=== PATIENT | female | born 1950 | race Caucasian/White ===

== ENCOUNTER 2016-05-24 09:00 | Outpatient (RCR) | payer MEDICARE ==
[2016-05-01 22:02] VITALS: BP 106/59
[~2016-05-24 09:00] MED LIST: CYMBALTA30 MG PO; GABAPENTIN TAB600 MG PO; LAMICTAL 25MG T25 MG; LEVOTHYROXIN0.025 MG PO; METHADONE HYDRO10 MG PO; METHADONE5 MG; NORCO 325 MG-101 TAB PO
== END 2016-06-22 13:23 | disposition home or self-care (01) ==
LOC: OPPGERO 09:00

== ENCOUNTER 2016-09-01 09:45 | Emergency (ER) | payer OTHER ==
[2016-09-01] MEDS ORDERED: BUTRANS10 MCG/HR TOP (10:11)
[2016-09-01] MEDS ORDERED: PENICILLIN-VK500 M1 PO (10:12)
[2016-09-01] MEDS ORDERED: NEURONTIN300 MG/CAP (10:18)
[2016-09-01] MEDS ORDERED: LAMICTAL150 MG PO (10:19)
[2016-09-01] MEDS ORDERED: LEVOTHYROXIN0.088 MG PO (10:20)
[2016-09-01] MEDS ORDERED: ZOLPIDEM TART5 MG PO (10:21)
[2016-09-01] MEDS ORDERED: DESYREL 100MG100 MG PO (10:21)
[2016-09-01] MEDS ORDERED: PREDNISONE10 MG PO (12:38)
[2016-09-01] MEDS ORDERED: IBU800 M1 PO (12:38)
[2016-09-01] MEDS ORDERED: CLEOCIN HCL300 MG PO (12:38)
[2016-09-01 12:44] VITALS: BP 90/55
== END 2016-09-01 12:53 | disposition home or self-care (01) ==
LOC: ED 09:45
DX: R68.84 Jaw pain (principal); R60.9 Edema, unspecified; Z98.818 Other dental procedure status
CPT/HCPCS: Q9967

== ENCOUNTER 2017-02-11 10:00 | Outpatient (RCR) | payer OTHER ==
[~2017-02-11 10:00] MED LIST changes: +BUTRANS10 MCG/HR TOP; +CLEOCIN HCL300 MG PO; +DESYREL 100MG100 MG PO; +IBU800 M1 PO; +LAMICTAL150 MG PO; +LEVOTHYROXIN0.088 MG PO; +NEURONTIN300 MG/CAP; +PENICILLIN-VK500 M1 PO; +PREDNISONE10 MG PO; +ZOLPIDEM TART5 MG PO
== END 2017-02-11 10:43 | disposition home or self-care (01) ==
LOC: PT 10:00
DX: M48.06 Spinal stenosis, lumbar region (principal); M51.27 Other intervertebral disc displacement, lumbosacral region

== ENCOUNTER → 2017-10-10 | Day surgery (SDC) | payer MEDICARE | LOC: MSO 07:16 | DX: Z12.11 Encounter for screening for malignant neoplasm of colon (principal); G47.33 Obstructive sleep apnea (adult) (pediatric); E07.9 Disorder of thyroid, unspecified; G62.9 Polyneuropathy, unspecified; F41.9 Anxiety disorder, unspecified; F32.9 Major depressive disorder, single episode, unspecified | CPT/HCPCS: 00812; J2704; J7120 ==

== ENCOUNTER → 2018-10-11 | Outpatient (CLI) | payer MEDICARE | LOC: RAD 08:30 | DX: M19.012 Primary osteoarthritis, left shoulder (principal); M75.52 Bursitis of left shoulder ==

== ENCOUNTER → 2019-02-06 | Outpatient (CLI) | payer MEDICARE | LOC: MAMMO 10:38 | DX: Z12.31 Encounter for screening mammogram for malignant neoplasm of breast (principal) ==

== ENCOUNTER 2019-03-16 17:26 | Emergency (ER) | payer MEDICARE ==
[~2019-03-16] VITALS: Ht 152.4 cm; Wt 73.2 kg
[2019-03-16] MEDS ORDERED: PILOCARPINE HYDR5 MG PO (17:38)
[2019-03-16] MEDS ORDERED: METHOCARBAMOL500 M1 PO (17:38)
[2019-03-16 19:32] VITALS: BP 110/56
== END 2019-03-16 19:32 | disposition home or self-care (01) ==
LOC: ED 17:26
DX: S80.02XA Contusion of left knee, initial encounter (principal); M79.7 Fibromyalgia; Z90.710 Acquired absence of both cervix and uterus; Z90.5 Acquired absence of kidney; W01.0XXA Fall on same level from slipping, tripping and stumbling without subsequent striking against object, initial encounter; Y92.009 Unspecified place in unspecified non-institutional (private) residence as the place of occurrence of the external cause
CPT/HCPCS: J1885; L1830

== ENCOUNTER 2019-08-05 19:28 | Emergency (ER) | payer MEDICARE ==
[~2019-08-05 19:28] MED LIST changes: +METHOCARBAMOL500 M1 PO; +PILOCARPINE HYDR5 MG PO
[2019-08-05 21:00] VITALS: BP 114/68
== END 2019-08-05 21:00 | disposition home or self-care (01) ==
LOC: ED 19:28
DX: S80.11XA Contusion of right lower leg, initial encounter (principal); M79.7 Fibromyalgia; G62.9 Polyneuropathy, unspecified; Z90.5 Acquired absence of kidney; Z90.710 Acquired absence of both cervix and uterus; W22.8XXA Striking against or struck by other objects, initial encounter; Y92.009 Unspecified place in unspecified non-institutional (private) residence as the place of occurrence of the external cause
CPT/HCPCS: J1885

== ENCOUNTER → 2020-06-10 | Outpatient (CLI) | payer MEDICARE | LOC: RAD 09:12 | DX: M17.11 Unilateral primary osteoarthritis, right knee (principal); M25.761 Osteophyte, right knee; M25.861 Other specified joint disorders, right knee ==

== ENCOUNTER 2020-06-21 22:59 | Emergency (ER) | payer MEDICARE ==
[~2020-06-21] VITALS: Ht 170.2 cm; Wt 75.0 kg
[2020-06-21] MEDS ORDERED: AMITRIPTYLINE H10 M2 PO (23:15)
[2020-06-21] MEDS ORDERED: AMITRIPTYLINE H25 M2 PO (23:15)
[2020-06-21] MEDS ORDERED: NEURONTIN600 M1 PO (23:16)
[2020-06-21] MEDS ORDERED: CYMBALTA60 M1 PO (23:17)
[2020-06-21] MEDS ORDERED: SALAGEN 5MG TAB5 MG PO (23:17)
[2020-06-21] MEDS ORDERED: SYNTHROID0.075 MG PO (23:17)
[2020-06-21] MEDS ORDERED: ZOCOR10 M1 PO (23:18)
[2020-06-22 00:52] LABS: EOS # 0.2 (0.04-0.40); EOS % 3.3 % (1.0-5.0); HEMATOCRIT 41.8 % (37.0-47.0); HEMOGLOBIN 13.2 g/dL (12.5-16.0); LYMPH# 1.3 (1.50-4.00); MEAN CELL VOLUME 94 fl (78-100); MEAN CORPUSCULAR HEMOGLOBIN 30 pg (27-31); MEAN CORPUSCULAR HGB CONC 32 g/dL (33-37); MEAN PLATELET VOLUME 11.2 fl (7.4-10.4); MONO # 0.6 (0.20-0.80); NEU # 3.6 (1.40-6.50); PLATELET COUNT 182 K/mm3 (130-400); RED BLOOD COUNT 4.44 M/mm3 (4.10-5.30); RED CELL DISTRIBUTION WIDTH 12.7 % (11.5-14.5); WHITE BLOOD COUNT 5.7 K/mm3 (4.8-10.8)
[2020-06-22] MEDS ORDERED: GOOD NEIGHBOR P20 M1 PO (01:30)
[2020-06-22 01:36] VITALS: BP 114/64
== END 2020-06-22 01:36 | disposition home or self-care (01) ==
LOC: ED 22:59
PROVIDERS: Family Medicine
DX: R05 Cough (principal); R13.10 Dysphagia, unspecified; R49.0 Dysphonia; M79.7 Fibromyalgia; Z20.822 Contact with and (suspected) exposure to COVID-19; Z90.710 Acquired absence of both cervix and uterus; Z88.2 Allergy status to sulfonamides; Z79.890 Hormone replacement therapy; Z79.899 Other long term (current) drug therapy

== ENCOUNTER 2020-07-29 10:09 | Outpatient (RCR) | payer MEDICARE ==
[~2020-07-29 10:09] MED LIST changes: +AMITRIPTYLINE H10 M2 PO; +AMITRIPTYLINE H25 M2 PO; +CYMBALTA60 M1 PO; +GOOD NEIGHBOR P20 M1 PO; +NEURONTIN600 M1 PO; +SALAGEN 5MG TAB5 MG PO; +SYNTHROID0.075 MG PO; +ZOCOR10 M1 PO
== END 2020-07-29 16:30 ==
LOC: PT 10:09
DX: Z96.651 Presence of right artificial knee joint (principal)

== ENCOUNTER 2020-10-09 11:02 | Outpatient (RCR) | payer MEDICARE | END 2021-01-07 | disposition home or self-care (01) | LOC: PT | DX: R26.89 Other abnormalities of gait and mobility (principal); Z96.651 Presence of right artificial knee joint ==

== ENCOUNTER → 2021-02-18 | Outpatient (CLI) | payer MEDICARE | LOC: MAMMO 10:36 | DX: Z12.31 Encounter for screening mammogram for malignant neoplasm of breast (principal) ==

== ENCOUNTER 2021-11-01 08:32 | Emergency (ER) | payer MEDICARE ==
[~2021-11-01] VITALS: Ht 162.6 cm; Wt 79.1 kg
[2021-11-01] MEDS ORDERED: BUPRENORPHINE1 EAC2 TD (08:50)
[2021-11-01] MEDS ORDERED: FLUTICASON0.05 MG/AC NS (08:52)
[2021-11-01 09:16] VITALS: BP 112/64
== END 2021-11-01 09:16 | disposition home or self-care (01) ==
LOC: ED 08:32
DX: M54.50 Low back pain, unspecified (principal); G89.29 Other chronic pain
CPT/HCPCS: J1885

== ENCOUNTER → 2023-06-22 | Outpatient (CLI) | payer MEDICARE, MEDICAID ==
[~2023-06-22] MED LIST changes: +BUPRENORPHINE1 EAC2 TD; +FLUTICASON0.05 MG/AC NS
== END ==
LOC: RAD 08:53
DX: K80.20 Calculus of gallbladder without cholecystitis without obstruction (principal); Z90.5 Acquired absence of kidney

== ENCOUNTER → 2023-09-01 | Outpatient (CLI) | payer MEDICARE, MEDICAID | LOC: RAD 09:28 | DX: M25.562 Pain in left knee (principal) ==

== ENCOUNTER 2023-12-24 15:54 | Emergency (ER) | payer MEDICARE, MEDICAID ==
[2023-12-24 16:42] LABS: BASO # 0.02 K/mm3 (0.02-0.10); EOS # 0.07 K/mm3 (0.04-0.40); EOS % 1.7 % (1.0-5.0); HEMATOCRIT 39.8 % (37.0-47.0); HEMOGLOBIN 12.9 g/dL (12.5-16.0); LYMPH# 1.56 K/mm3 (1.50-4.00); MEAN CELL VOLUME 100 fl (78-100); MEAN CORPUSCULAR HEMOGLOBIN 32 pg (27-31); MEAN CORPUSCULAR HGB CONC 32 g/dL (33-37); MEAN PLATELET VOLUME 10.5 fl (7.4-10.4); MONO # 0.44 K/mm3 (0.20-0.80); NEU # 2.11 K/mm3 (1.40-6.50); PLATELET COUNT 208 K/mm3 (130-400); RED CELL DISTRIBUTION WIDTH 12.2 % (11.5-14.5); WHITE BLOOD COUNT 4.2 K/mm3 (4.8-10.8)
[2023-12-24 16:51] LABS: CALCIUM 10.3 mg/dL (8.3-10.5)
[2023-12-24 16:52] LABS: ALBUMIN 3.8 g/dL (3.4-4.8)
[2023-12-24 16:54] LABS: TOTAL BILIRUBIN 0.3 mg/dL (0.2-1.2)
[2023-12-24 17:13] LABS: PH-URINE 5.5 (5.0 - 8.0); URINE APPEARANCE CLEAR (CLEAR); URINE BILIRUBIN NEGATIVE (NEGATIVE); URINE BLOOD NEGATIVE (NEGATIVE); URINE COLOR YELLOW (YELLOW); URINE GLUCOSE NEGATIVE (NEGATIVE); URINE KETONE NEGATIVE (NEGATIVE); URINE LEUKOCYTE ESTERASE NEGATIVE (NEGATIVE); URINE NITRATE NEGATIVE (NEGATIVE); URINE PROTEIN(semi-quant) NEGATIVE (NEGATIVE); URINE WBC 0-1 /hpf (0-3)
[2023-12-24] MEDS ORDERED: Ketorolac 30 MG/ML VIAL IM ONE (17:30)
[2023-12-24 20:18] VITALS: BP 132/78
== END 2023-12-24 20:20 | disposition home or self-care (01) ==
LOC: ED 15:54
PROVIDERS: Family Medicine
DX: K59.09 Other constipation (principal)
CPT/HCPCS: J1885

== ENCOUNTER → 2024-01-31 | Outpatient (CLI) | payer MEDICARE, MEDICAID | LOC: RAD 12:40 | DX: R60.0 Localized edema (principal); W19.XXXA Unspecified fall, initial encounter ==

== ENCOUNTER 2024-06-26 08:24 | Emergency (ER) | payer MEDICARE, MEDICAID ==
[~2024-06-26] VITALS: Ht 162.6 cm; Wt 71.7 kg
[2024-06-26 08:27] VITALS: BP 120/73
[2024-06-26] MEDS ORDERED: CLINDAMYCIN 300MG PO (08:29)
[2024-06-26] MEDS ORDERED: CYMBALTA20 MG PO (08:42)
[2024-06-26] MEDS ORDERED: MAG-OXIDE200 MG (08:46)
[2024-06-26] MEDS ORDERED: LYRICA100 MG PO (09:01)
[2024-06-26] MEDS ORDERED: NYSTATIN15 G1 TOP (09:02)
[2024-06-26] MEDS ORDERED: Home HYDROcodone/Acetaminophen 5/325 MG #4 TABS/PACK PO ONE (09:15)
== END 2024-06-26 09:39 | disposition home or self-care (01) ==
LOC: ED 08:24
DX: K08.89 Other specified disorders of teeth and supporting structures (principal); K02.9 Dental caries, unspecified

== ENCOUNTER → 2024-09-03 | Outpatient (CLI) | payer MEDICARE, MEDICAID ==
[~2024-09-03] MED LIST changes: +CLINDAMYCIN 300MG PO; +CYMBALTA20 MG PO; +LYRICA100 MG PO; +MAG-OXIDE200 MG; +NYSTATIN15 G1 TOP
== END ==
LOC: MAMMO 08:48
DX: Z12.31 Encounter for screening mammogram for malignant neoplasm of breast (principal)